=== PATIENT | female | born 1940 | race Caucasian/White ===

== ENCOUNTER → 2024-10-14 | Outpatient (CLI) | payer MEDICARE, SELFPAY ==
[2024-10-14 12:22] LABS: Glucose Estimated Average 140 mg/dL (80-131); Hemoglobin A1C 6.5 % Hgb (4.8-6.0)
[2024-10-14 12:28] LABS: Creatinine MALB Rnd Ur 28 mg/dL (30-125); Microalbumin, Random Urine < 3 mg/L (0-300)
[2024-10-14 12:34] LABS: Alanine Aminotransferase 90 U/L (10-49); Albumin, Serum 4.5 gm/dL (3.4-4.8); Alkaline Phosphatase 98 U/L (46-116); Anion Gap 7 (7-16); Aspartate Amino Transferase 54 U/L (0-34); BUN/Creatinine Ratio 21 Ratio (12-20); Bilirubin,Total 0.9 mg/dL (0.3-1.2); Blood Urea Nitrogen 19 mg/dL (9-23); Carbon Dioxide 29.4 mMol/L (20.0-31.0); Cardiac Risk Estimate 2.6 RATIO (3.7-5.6); Chloride 103 mMol/L (98-107); Cholesterol 175 mg/dL (132-200); Creatinine (Component) 0.9 mg/dL (0.6-1.3); Free T4 (Free Thyroxine) 1.17 ng/dL (0.89-1.76); Globulin 2.3 gm/dL (2.3-3.5); Glucose 121 mg/dL (74-106); HDL Cholesterol 68 mg/dL (40-60); LDL Cholesterol,Calculated 81 mg/dL (0-130); Osmolality,Calculated 280 (275-295); Potassium 4.3 mMol/L (3.4-5.1); Sodium 139 mMol/L (136-145); Thyroid Stimulating Hormone 1.24 uIU/mL (0.55-4.78); Total Protein 6.8 gm/dL (5.7-8.2); Triglycerides 132 mg/dL (30-150); eGFR > 60 See Note
== END | disposition home or self-care (01) ==
PROVIDERS: PCP Specialist; Referring Provider Specialist; Visit Provider Specialist
DX: E11.65 Type 2 diabetes mellitus with hyperglycemia (principal); E03.8 Other specified hypothyroidism; E78.2 Mixed hyperlipidemia
CPT/HCPCS: 36415; 80053; 80061; 82043; 82570; 83036; 84439; 84443

== ENCOUNTER → 2024-10-21 | Outpatient (CLI) | payer MEDICARE, MEDICAID, SELFPAY ==
[2024-10-21 17:50] LABS: Alanine Aminotransferase 76 U/L (10-49); Albumin, Serum 4.3 gm/dL (3.4-4.8); Alkaline Phosphatase 89 U/L (46-116); Aspartate Amino Transferase 39 U/L (0-34); Bilirubin,Direct 0.1 mg/dL (0.0-0.3); Bilirubin,Total 0.5 mg/dL (0.3-1.2); Total Protein 6.8 gm/dL (5.7-8.2)
[2024-10-21 18:49] LABS: Hepatitis A Antibody IgM Non Reactive (Non React); Hepatitis B Core Antibody IgM Non Reactive (Non React); Hepatitis B Surface Antigen Non Reactive (Non React); Hepatitis C Antibody Non Reactive (Non React)
== END | disposition home or self-care (01) ==
LOC: COPL 16:53
PROVIDERS: PCP Specialist; Referring Provider Specialist; Visit Provider Specialist
DX: K73.9 Chronic hepatitis, unspecified (principal)
CPT/HCPCS: 36415; 80074; 80076

== ENCOUNTER → 2024-11-11 | Outpatient (CLI) | payer MEDICARE, MEDICAID, SELFPAY ==
--- NOTE | 2024-11-11 09:00 | XR_ITS ---
Examination: Abdomen sonogram, complete Date and time of exam: November 11, 2024 0914 hrs. Indications: Elevated liver function tests on laboratory examination this year. Technique: Multiple real-time grayscale transabdominal sonographic images of the abdomen have been obtained. Findings: Absent gallbladder Normal common bile duct 0.5 cm Pancreatic head 1.9 cm Aorta not enlarged Liver 16.0 cm irregular contour fatty infiltration no focal liver lesions Normal hepatopedal portal venous oh Patent IVC Right kidney 9.5 x 3.7 x 4.7 cm renal cortex 1.3 cm Left kidney 10.4 x 4.2 x 4.9 cm cortex 1.5 cm Moderate bilateral renal parenchymal scar formation Spleen 10.5 cm Impression: Normal common bile duct Mild hepatomegaly suspect primary hepatocellular disease Small kidneys with bilateral renal cortical thinning Moderate bilateral renal parenchymal scar formation
== END | disposition home or self-care (01) ==
PROVIDERS: PCP Specialist; Referring Provider Specialist; Visit Provider Specialist
DX: R16.0 Hepatomegaly, not elsewhere classified (principal); N28.89 Other specified disorders of kidney and ureter
CPT/HCPCS: 76700

== ENCOUNTER 2025-06-19 20:26 | Emergency (ER) | payer MEDICARE, MEDICAID, SELFPAY ==
[2025-06-19 20:27] VITALS: BMI 32.2
--- NOTE | 2025-06-19 20:33 | XR_ITS ---
Examination: Wrist, left 3 views Technique: Wrist AP, oblique, lateral 3 views Date and time of exam: June 19, 2025, 2052 hrs. Indications: Patient fell today with injury to the wrist, wrist pain. Findings: Acute comminuted intra-articular impacted fracture distal radial metaphysis No major displacement Prominent osteopenia Impression: Acute comminuted intra-articular impacted fracture distal radial metaphysis
[2025-06-19 21:20] VITALS: BP 144/80; PULSE 83; RESP 16; TEMP 36.6; O2SAT 96
--- NOTE | 2025-06-19 21:46 | PD.EDHAND ---
Upper Extremity Injury RME/HPI General Chief Complaint: Hand/Wrist Problems Stated Complaint: L WRIST PAIN S/P FALL Time Seen by Provider: 06/19/25 20:49 Arrival date/time: 06/19/25 20:26 RME / HPI RME / HPI narrative: 85-year-old female patient was brought in by friend for evaluation regarding left wrist injury. Patient sustained a fall landing on her wrist, resulting to deformity and pain. Patient denies any head injury denies any neck pain denies any other injury. Patient is ambulatory incident happened earlier today. Related Data Home Medications ?Medication ?Instructions ?Recorded ?Confirmed montelukast 10 mg tablet 10 mg PO DAILY ##0 04/06/09 (Singulair) ezetimibe 10 mg tablet (Zetia) 10 mg PO QDAY High Cholesterol #0 11/01/13 tabs Azelastine/Fluticasone (Dymista 1 spry NASAL BID ##0 11/05/13 Nasal Philpot) LORATADINE (ALLERGY) 10 mg PO QDAY PRN ALLERGY ##0 11/05/13 Methylprednisolone DOSE PACK * 4 mg PO UD ##0 11/05/13 (MEDROL DOSE PACK *) albuterol sulfate 90 mcg/actuation 2 puff inhalation [id number] PRN 11/05/13 aerosol inhaler (ProAir HFA) SHORTNESS OF BREATH OR WHEEZE ##0 guaifenesin 600 mg tablet, 600 mg PO Q12HR ##0 11/05/13 extended release 12 hr (Mucinex) Fluticasone/Vilanterol (Breo 1 ea IH QDAY #0 ea 04/22/16 Ellipta 200-25 Mcg INH) Levothyroxine * (SYNTHROID *) 50 mcg PO QDAY #0 tabs 04/22/16 atorvastatin 20 mg tablet (Lipitor) 20 mg PO HS #0 tabs 04/22/16 flunisolide 80 mcg/actuation HFA 8.9 gm IH BID ##0 04/22/16 aerosol inhaler (Aerospan) Previous Rx's ?Medication ?Instructions ?Recorded Metformin Hcl 2 tab PO BID DM 2 #120 tabs 11/11/13 albuterol sulfate 2.5 mg/3 mL 1 vial HHN 6 hrs+q2 hrs prn COPD 11/11/13 (0.083 %) solution for nebulization #120 vials nitroglycerin 0.4 mg sublingual 1 tab SL q 5 [id number] chest 11/13/13 tablet (Nitrostat) discomfort >3minutes #25 tabs Allergies Allergy/AdvReac Type Severity Reaction Status Date / Time ampicillin Allergy Severe Wheezing Verified 06/19/25 20:28 erythromycin base Allergy Severe Anaphylaxis Verified 06/19/25 20:28 peanut Allergy Severe Difficulty Verified 06/19/25 20:28 Breathing ipratropium Allergy Mild FLUID Verified 06/19/25 20:28 RETENTION cephalexin Allergy Unknown Verified 06/19/25 20:28 Cephalosporins Allergy Unknown Verified 06/19/25 20:28 corn Allergy Unknown Verified 06/19/25 20:28 Penicillins Allergy Unknown Verified 06/19/25 20:28 morphine AdvReac Intermediate Nausea/Vomi Verified 06/19/25 20:28 tiing KLEENEX Allergy Intermediate Swelling Uncoded 06/19/25 20:28 STRAWBERRIES Allergy Intermediate Hives Uncoded 06/19/25 20:28 Review of Systems Review of Systems Narrative Review of Systems: Review of system reviewed and within normal limits except mentioned in HPI ED Exam Narrative Physical exam: VITAL SIGNS: Reviewed. GENERAL APPEARANCE: Alert and interactive, follows commands, no acute distress, HEAD AND FACE: Non-traumatic. ENT: PERRL, pink conjunctivitis, eyelid no trauma, Mucous membrane moist. NECK: Supple, nontender, no nuchal rigidity. CHEST: No tenderness, no crepitus, no paradoxical movement, no retractions. LUNGS: Clear, well ventilated, symmetric, no rales, no wheezing, no ronchi, no stridor, good breath sounds bilaterally. HEART: Regular rate, regular rhythm, no murmur, no gallops. ABDOMEN: Soft, positive bowel sounds, nondistended, no guarding, nontender, no rebound, no masses, RECTAL: Deferred. GENITAL: Deferred. NEUROLOGICAL: Gross motor function intact sensory function intact, Appropriate for age. MUSCULOSKELETAL: low back nontender, full range of motion. EXTREMITIES: Left wrist swelling, no deformity, with tenderness, full range of motion. Distal neurovascular status intact SKIN: Color pink, dry, no rash, no lacerations, no abrasions, no contusions. LYMPHATICS: Deferred. Course Quality Measures none Orders Category Date Time Status XR wrist comp LT min 3V Stat Exams 06/19/25 20:33 Completed Ibuprofen Tab [Motrin Tab] Med 06/19/25 21:48 Once 600 mg PO X1 ONE Vital Signs Vital signs: Vital Signs Temperature 97.9 F 06/19/25 21:20 Pulse Rate 83 06/19/25 21:20 Respiratory Rate 16 06/19/25 21:20 Blood Pressure 144/80 H 06/19/25 21:20 Pulse Oximetry (%) 96 06/19/25 21:20 Oxygen Delivery Method Room Air 06/19/25 21:20 Extremity Injury MDM Narrative MDM Narrative:: 85-year-old female patient was brought in by friend for evaluation regarding left wrist injury. Patient sustained a fall landing on her wrist, resulting to deformity and pain. Patient denies any head injury denies any neck pain denies any other injury. Patient is ambulatory incident happened earlier today. X-ray of the left wrist showed impacted distal radius fracture, good alignment results discussed with the patient and family. Reverse sugar-tong splint applied. Distal neurovascular status intact. Arm sling applied Stable for discharge home Patient data External records reviewed:: None Clinical information provided by:: patient Social determinants that could affect healthcare access:: none Patient has the following chronic illnesses:: Diabetes mellitus How is presenting disease/condition affected by chronic disease/condition?: no chronic disease Evaluation data The following diagnostics were reviewed and interpreted by me:: radiology exam(s) Lab and/or radiology exams considered but not ordered:: None Interpretation Summary: See results [facility] Medications / Prescriptions Medications or Prescriptions considered but not ordered:: None Medication administrations:: Medication Administration History Ibuprofen (Ibuprofen Tab 600 Mg Tablet) 600 mg PO X1 ONE Stop: 06/19/25 21:49 Motrin Consultations Consultation(s) initiated? (list below): No Diagnosis Upper Extremity Injury Differential Diagnosis: sprain and strain of wrist, fracture of wrist and fracture of hand Most likely diagnosis given after review of the tests above:: Distal radius fracture left Admission Indicated Admission indicated?: not indicated Admission Request Was there a request for admission?: No Disposition Plan Disposition Plan: Discharge Discharge Attestation Discharge Attestation: The patient and all family members were given an opportunity to ask questions and understood the discharge instructions. Discharge instructions specifically effects, indications for sooner follow up or return to the emergency department, and the expected course of current diagnosis. Patient condition: Stable Discharge Plan Plan Patient Disposition: HOME (Self Care) Discharge Disposition comment: Stable Prescriptions/Referrals Prescriptions/Med Rec: No Action montelukast [Singulair] 10 MG tablet 10 mg PO DAILY Qty: 0 ezetimibe [Zetia] 10 MG tablet 10 mg PO QDAY Qty: 0 Azelastine/Fluticasone (Dymista Nasal [place]) 23 GM SPRAY.PUMP 1 spry NASAL BID Qty: 0 albuterol sulfate [ProAir HFA] 8.5 GM HFA aerosol inhaler 2 puff Inhalation [id number] PRN (Reason: SHORTNESS OF BREATH OR WHEEZE) Qty: 0 guaifenesin [Mucinex] 600 MG tablet extended release 12hr 600 mg PO Q12HR Qty: 0 LORATADINE (ALLERGY) 10 MG tablet 10 mg PO QDAY PRN (Reason: ALLERGY) Qty: 0 Methylprednisolone DOSE PACK * (MEDROL DOSE PACK *) 4 MG/DOSE PACK TAB.DS.PK 4 mg PO UD Qty: 0 Metformin Hcl 500 MG tablet 2 tab PO BID Qty: 120 1RF albuterol sulfate 3 ML solution for nebulization 1 vial HHN 6 hrs+q2 hrs prn Qty: 120 1RF nitroglycerin [Nitrostat] 25 TAB tablet, sublingual 1 tab SL q 5 [id number] Qty: 25 1RF atorvastatin [Lipitor] 20 MG tablet 20 mg PO HS Qty: 0 flunisolide [Aerospan] 8.9 GM HFA aerosol inhaler 8.9 gm IH BID Qty: 0 Fluticasone/Vilanterol (Breo Ellipta 200-25 Mcg INH) 1 EACH BLST.W.DEV 1 ea IH QDAY Qty: 0 Levothyroxine * (SYNTHROID *) 50 MCG tablet 50 mcg PO QDAY Qty: 0 Referrals: No Primary/Family,Physician [Primary Care Provider] - In 1 week Problem List Clinical Impression: Distal radius fracture, left Patient/Caregiver Discharge Instructions Discharge Activity: activity as tolerated Education Materials: Wrist Fracture Additional Instructions: Thank you for the opportunity for serving you today. You are stable for discharged . You are advised to: Follow-up with your PCP in 1 to 2 days and ask for referral to orthopedic surgeon Return to ED for worsening of symptoms Increase oral fluids Take [id number] Tylenol Motrin as needed for pain Elevate arm as needed Do not remove your splint until seen by orthopedic surgeon. Print Language: Hebrew Stand Alone Forms: Zehra Award Info., Patient Portal Info Letter PA/DRY FOLDER CLOTH Supervising Physician PA/DRY FOLDER CLOTH Supervising Physician: MD Angie
[2025-06-19] MEDS: IBUPROFEN TAB 600 MG TABLET PO (22:18)
== END 2025-06-19 22:25 | disposition home or self-care (01) ==
PROVIDERS: Emergency Provider Emergency Medicine
DX: S52.592A Other fractures of lower end of left radius, initial encounter for closed fracture (principal); W19.XXXA Unspecified fall, initial encounter
CPT/HCPCS: 73110; 99283; A9270

== ENCOUNTER → 2025-07-15 | Outpatient (CLI) | payer MEDICARE, MEDICAID, SELFPAY ==
[2025-07-15 10:24] LABS: Misc Send Out* See Sep Rpt
[2025-07-15 11:04] LABS: Basophils # (Auto) 0.0 Thou/mm3 (0.0-0.2); Basophils % (Auto) 0 % (0-2.5); Eosinophils # (Auto) 0.2 Thou/mm3 (0.0-0.5); Eosinophils % (Auto) 3 % (0-10); Hematocrit 39.9 % (36.0-46.0); Hemoglobin 12.9 g/dL (12.0-16.0); Immature Granulocytes Auto 0.02 Thou/mm3 (0.00-0.00); Lymphocytes # (Auto) 1.2 Thou/mm3 (1.0-4.8); Lymphocytes % (Auto) 20 % (10-50); Mean Corpuscular HGB Conc 32.3 g/dl (31.0-37.0); Mean Corpuscular Hemoglobin 30.5 pg (25.0-35.0); Mean Corpuscular Volume 94 fL (80-100); Monocytes # (Auto) 0.4 Thou/mm3 (0.0-0.8); Monocytes % (Auto) 7 % (0-12); Neutrophils # (Auto) 4.3 Thou/mm3 (1.8-7.7); Neutrophils % (Auto) 70 % (37-80); Nucleated Red Blood Cell # 0.00 Thou/mm3 (0.00-0.00); Nucleated Red Blood Cell % 0 /100 WBC (0); Platelet Count 247 Thou/mm3 (140-440); RDW Standard Deviation 46.1 fL (36.4-46.3); Red Blood Count 4.23 Miln/mm3 (4.00-5.20); White Blood Count 6.1 Thou/mm3 (3.6-11.0)
[2025-07-15 11:11] LABS: Glucose Estimated Average 137 mg/dL (80-131); Hemoglobin A1C 6.4 % Hgb (4.8-6.0)
[2025-07-15 11:34] LABS: Creatinine MALB Rnd Ur 123 mg/dL (30-125); Microalbumin Creat Ratio 3 mg/gCrea (<30); Microalbumin, Random Urine 4 mg/L (0-300)
[2025-07-15 11:36] LABS: Alanine Aminotransferase 38 U/L (10-49); Albumin, Serum 4.6 gm/dL (3.4-4.8); Albumin/Globulin Ratio 2.3 (1.2-2.2); Alkaline Phosphatase 92 U/L (46-116); Anion Gap 12 (7-16); Aspartate Amino Transferase 30 U/L (0-34); BUN/Creatinine Ratio 17 Ratio (12-20); Bilirubin,Total 0.8 mg/dL (0.3-1.2); Blood Urea Nitrogen 15 mg/dL (9-23); Calcium 9.9 mg/dL (8.3-10.6); Calcium (Corrected) 9.9 mg/dL (8.5-10.1); Carbon Dioxide 28.1 mMol/L (20.0-31.0); Cardiac Risk Estimate 4.5 RATIO (3.7-5.6); Chloride 105 mMol/L (98-107); Cholesterol 284 mg/dL (132-200); Creatinine (Component) 0.9 mg/dL (0.6-1.3); Free T4 (Free Thyroxine) 1.19 ng/dL (0.89-1.76); Globulin 2.0 gm/dL (2.3-3.5); Glucose 127 mg/dL (74-106); HDL Cholesterol 63 mg/dL (40-60); LDL Cholesterol,Calculated 180 mg/dL (0-130); Osmolality,Calculated 291 (275-295); Potassium 3.9 mMol/L (3.4-5.1); Sodium 145 mMol/L (136-145); Thyroid Stimulating Hormone 1.56 uIU/mL (0.55-4.78); Total Protein 6.6 gm/dL (5.7-8.2); Triglycerides 206 mg/dL (30-150); eGFR > 60 See Note
[2025-07-15 12:11] LABS: Hepatitis B Surface Antigen Non Reactive (Non React); Hepatitis C Antibody Non Reactive (Non React)
== END | disposition home or self-care (01) ==
LOC: COPL 09:52
PROVIDERS: PCP Specialist; Referring Provider Specialist; Visit Provider Specialist
DX: E11.65 Type 2 diabetes mellitus with hyperglycemia (principal); E78.2 Mixed hyperlipidemia; E03.9 Hypothyroidism, unspecified; K76.0 Fatty (change of) liver, not elsewhere classified; N18.9 Chronic kidney disease, unspecified
CPT/HCPCS: 36415; 80053; 80061; 82043; 82570; 83036; 84439; 84443; 85025; 86803; 87340